=== PATIENT | female | born 1940 | race Caucasian/White ===

== ENCOUNTER → 2019-03-20 | Outpatient (CLI) | payer MEDICARE, OTHER ==
[~2019-03-20] MED LIST: ALLO300; Altoprev40 MG; Benicar40 MG; CARV25; COLCHICINE0.6 MG; ELIQUIS2.5 MG; FURO20; Ipratropium Bro15 ML; JARDIANCE25 MG; K-Dur20 MEQ; LEVSOD125; METF500; POTCHL20ER
== END ==
LOC: LAB EV 12:13 → LAB SHORT 12:13
DX: I87.2 Venous insufficiency (chronic) (peripheral) (principal)
CPT/HCPCS: 87070; 87077; 87186; 87205

== ENCOUNTER 2019-04-02 07:30 | Day surgery (SDC) | payer MEDICARE, OTHER ==
[2019-06-27] MEDS ORDERED: ELIQUIS2.5 MG (11:41)
[2019-06-27] MEDS ORDERED: CARV25 (11:41)
[2019-06-27] MEDS ORDERED: Benicar40 MG (11:41)
[2019-06-27] MEDS ORDERED: METF500 (11:42)
[2019-06-27] MEDS ORDERED: FURO20 (11:42)
[2019-06-27] MEDS ORDERED: POTCHL20ER (11:42)
[2019-06-27] MEDS ORDERED: JARDIANCE25 MG (11:42)
[2019-06-27] MEDS ORDERED: K-Dur20 MEQ (11:42)
[2019-06-27] MEDS ORDERED: COLCHICINE0.6 MG (11:43)
[2019-06-27] MEDS ORDERED: LEVSOD125 (11:43)
[2019-06-27] MEDS ORDERED: ALLO300 (11:43)
[2019-06-27] MEDS ORDERED: Altoprev40 MG (11:44)
[2019-06-27] MEDS ORDERED: Ipratropium Bro15 ML (11:44)
== END 2019-04-02 23:17 | disposition home or self-care (01) ==
LOC: WOUND 07:30
DX: E11.622 Type 2 diabetes mellitus with other skin ulcer (principal); L97.811 Non-pressure chronic ulcer of other part of right lower leg limited to breakdown of skin; E11.42 Type 2 diabetes mellitus with diabetic polyneuropathy; I73.89 Other specified peripheral vascular diseases; I10 Essential (primary) hypertension; I48.91 Unspecified atrial fibrillation; E78.5 Hyperlipidemia, unspecified; G47.30 Sleep apnea, unspecified; Z88.1 Allergy status to other antibiotic agents; Z88.0 Allergy status to penicillin; Z88.2 Allergy status to sulfonamides; Z88.8 Allergy status to other drugs, medicaments and biological substances
CPT/HCPCS: 87070; 87077; 87106; 87186; 87205; G0463

== ENCOUNTER 2019-04-09 10:38 | Day surgery (SDC) | payer MEDICARE, OTHER ==
[2019-06-27] MEDS ORDERED: CARV25 (11:41)
[2019-06-27] MEDS ORDERED: ELIQUIS2.5 MG (11:41)
[2019-06-27] MEDS ORDERED: Benicar40 MG (11:41)
[2019-06-27] MEDS ORDERED: JARDIANCE25 MG (11:42)
[2019-06-27] MEDS ORDERED: K-Dur20 MEQ (11:42)
[2019-06-27] MEDS ORDERED: FURO20 (11:42)
[2019-06-27] MEDS ORDERED: POTCHL20ER (11:42)
[2019-06-27] MEDS ORDERED: METF500 (11:42)
[2019-06-27] MEDS ORDERED: ALLO300 (11:43)
[2019-06-27] MEDS ORDERED: COLCHICINE0.6 MG (11:43)
[2019-06-27] MEDS ORDERED: LEVSOD125 (11:43)
[2019-06-27] MEDS ORDERED: Altoprev40 MG (11:44)
[2019-06-27] MEDS ORDERED: Ipratropium Bro15 ML (11:44)
== END 2019-04-09 22:49 | disposition home or self-care (01) ==
LOC: WOUND 10:38
DX: E11.622 Type 2 diabetes mellitus with other skin ulcer (principal); L97.811 Non-pressure chronic ulcer of other part of right lower leg limited to breakdown of skin; E11.51 Type 2 diabetes mellitus with diabetic peripheral angiopathy without gangrene; E11.42 Type 2 diabetes mellitus with diabetic polyneuropathy; E11.36 Type 2 diabetes mellitus with diabetic cataract; G47.30 Sleep apnea, unspecified; I10 Essential (primary) hypertension; M10.9 Gout, unspecified
CPT/HCPCS: G0463

== ENCOUNTER 2019-04-30 15:15 | Day surgery (SDC) | payer MEDICARE, OTHER ==
[2019-06-27] MEDS ORDERED: ELIQUIS2.5 MG (11:41)
[2019-06-27] MEDS ORDERED: CARV25 (11:41)
[2019-06-27] MEDS ORDERED: Benicar40 MG (11:41)
[2019-06-27] MEDS ORDERED: K-Dur20 MEQ (11:42)
[2019-06-27] MEDS ORDERED: POTCHL20ER (11:42)
[2019-06-27] MEDS ORDERED: FURO20 (11:42)
[2019-06-27] MEDS ORDERED: JARDIANCE25 MG (11:42)
[2019-06-27] MEDS ORDERED: METF500 (11:42)
[2019-06-27] MEDS ORDERED: ALLO300 (11:43)
[2019-06-27] MEDS ORDERED: LEVSOD125 (11:43)
[2019-06-27] MEDS ORDERED: COLCHICINE0.6 MG (11:43)
[2019-06-27] MEDS ORDERED: Ipratropium Bro15 ML (11:44)
[2019-06-27] MEDS ORDERED: Altoprev40 MG (11:44)
== END 2019-04-30 22:45 | disposition home or self-care (01) ==
LOC: WOUND 15:15
DX: E11.622 Type 2 diabetes mellitus with other skin ulcer (principal); L97.811 Non-pressure chronic ulcer of other part of right lower leg limited to breakdown of skin; I73.89 Other specified peripheral vascular diseases; I10 Essential (primary) hypertension; I48.91 Unspecified atrial fibrillation; E78.5 Hyperlipidemia, unspecified
CPT/HCPCS: G0463

== ENCOUNTER 2019-11-22 02:26 | Day surgery (SDC) | payer MEDICARE, OTHER | END 2019-11-22 23:17 | disposition home or self-care (01) | LOC: WOUND 02:26 | DX: L92.1 Necrobiosis lipoidica, not elsewhere classified (principal); E11.42 Type 2 diabetes mellitus with diabetic polyneuropathy; I73.89 Other specified peripheral vascular diseases; I10 Essential (primary) hypertension; E03.9 Hypothyroidism, unspecified; Z88.1 Allergy status to other antibiotic agents; Z88.0 Allergy status to penicillin; Z88.2 Allergy status to sulfonamides; Z88.8 Allergy status to other drugs, medicaments and biological substances; Z79.01 Long term (current) use of anticoagulants; Z79.899 Other long term (current) drug therapy; Z79.84 Long term (current) use of oral hypoglycemic drugs | CPT/HCPCS: G0463 ==

== ENCOUNTER 2019-11-28 00:14 | Day surgery (SDC) | payer MEDICARE, OTHER | END 2019-11-28 22:59 | disposition home or self-care (01) | LOC: WOUND 00:14 | DX: L92.1 Necrobiosis lipoidica, not elsewhere classified (principal); E11.42 Type 2 diabetes mellitus with diabetic polyneuropathy; I73.89 Other specified peripheral vascular diseases; I10 Essential (primary) hypertension; E78.5 Hyperlipidemia, unspecified; E03.9 Hypothyroidism, unspecified; Z79.01 Long term (current) use of anticoagulants; Z79.899 Other long term (current) drug therapy; Z79.84 Long term (current) use of oral hypoglycemic drugs | CPT/HCPCS: G0463 ==

== ENCOUNTER → 2019-12-05 | Day surgery (SDC) | payer MEDICARE, OTHER ==
[~2019-12-05] MED LIST changes: +ALLO300 PO; +BENICAR PO; +CARV25 PO; +CEFP200 PO; +COLCHICINE0.6 MG PO; +ELIQUIS5 MG PO; +FURO20 PO; +Ipratropium Bro30 ML INH; +JARDIANCE25 MG PO; +LEVOTHYROXINE PO; +LOVA40 PO; +METF500 PO; +ONDA4ODT MM; +POTCHL20ER PO; +Zithromax250 MG PO
== END ==
LOC: WOUND 00:28
DX: L92.1 Necrobiosis lipoidica, not elsewhere classified (principal); E11.42 Type 2 diabetes mellitus with diabetic polyneuropathy; I73.89 Other specified peripheral vascular diseases; I10 Essential (primary) hypertension; E78.5 Hyperlipidemia, unspecified; E03.9 Hypothyroidism, unspecified; Z79.01 Long term (current) use of anticoagulants; Z79.899 Other long term (current) drug therapy; Z79.84 Long term (current) use of oral hypoglycemic drugs
CPT/HCPCS: G0463

== ENCOUNTER 2019-12-10 13:34 | Emergency (ER) | payer MEDICARE, OTHER ==
[~2019-12-10] VITALS: Ht 172.7 cm; Wt 122.5 kg
[~2019-12-10 13:34] MED LIST changes: -ALLO300 PO; -BENICAR PO; -CARV25 PO; -CEFP200 PO; -COLCHICINE0.6 MG PO; -ELIQUIS5 MG PO; -FURO20 PO; -Ipratropium Bro30 ML INH; -JARDIANCE25 MG PO; -LEVOTHYROXINE PO; -LOVA40 PO; -METF500 PO; -ONDA4ODT MM; -POTCHL20ER PO; -Zithromax250 MG PO
[2019-12-10 14:07] LABS: BASOPHILS ABSOLUTE AUTO 0.01 K/mm3 (0.00-0.23); BASOPHILS PERCENT AUTO 0 % (0-2); EOSINOPHILS PERCENT AUTO 0 % (0-6); Hematocrit 42.8 % (33.0-51.0); Hemoglobin 14.1 g/dL (11.5-16.0); IMMATURE GRAN ABSOLUTE AUTO 0.02 K/mm3 (0.00-0.10); IMMATURE GRAN PERCENT AUTO 0 % (0-1); LYMPHOCYTES PERCENT AUTO 14 % (21-46); MONOCYTES ABSOLUTE AUTO 0.57 K/mm3 (0.16-1.47); MONOCYTES PERCENT AUTO 8 % (4-13); Mean Corpuscular HGB 30.9 pg (26.0-34.0); Mean Corpuscular HGB Conc 32.9 g/dL (31.5-36.5); Mean Corpuscular Volume 94 fL (80-100); Mean Platelet Volume 10.2 fL (9.1-12.4); NEUTROPHILS ABSOLUTE AUTO 5.51 K/mm3 (1.96-9.15); NEUTROPHILS PERCENT AUTO 78 % (41-73); Platelet Count 167 K/mm3 (150-400); RDW Coefficient Variation 13.9 % (11.7-14.2); RDW Standard Deviation 48.1 fL (35.1-46.3); Red Blood Cell Count 4.57 M/mm3 (3.80-5.20); White Blood Cell Count 7.11 K/mm3 (4.00-11.30)
[2019-12-10 14:30] LABS: Alanine Aminotransfer (ALT/SGP 25 U/L (12-78); Albumin, Blood 2.8 g/dL (3.4-5.0); Albumin/Globulin Ratio 0.7 (0.8-1.8); Alk Phos 62 U/L (50-136); Anion Gap 8 mmol/L (6-16); Aspartate Aminotrans (AST/SGOT 26 U/L (12-37); Bilirubin, Total 0.8 mg/dL (0.1-1.0); Blood Urea Nitrogen 15 mg/dL (8-24); Bun/Creatinine Ratio 17.9 (12.0-20.0); CO2, Blood 25 mmol/L (21-32); Calcium, Blood 8.7 mg/dL (8.5-10.1); Chloride, Blood 101 mmol/L (98-108); Creatinine, Blood 0.84 mg/dL (0.40-1.00); Globulin, Blood 4.2 g/dL (2.2-4.0); Glomerular Filtration Rate >60 (60-); Glucose, Blood 153 mg/dL (70-99); Potassium, Blood 4.2 mmol/L (3.5-5.5); Sodium, Blood 134 mmol/L (136-145)
[2019-12-10] MEDS ORDERED: CARV25 PO (14:31)
[2019-12-10] MEDS ORDERED: ALLO300 PO (14:31)
[2019-12-10] MEDS ORDERED: BENICAR PO (14:31)
[2019-12-10] MEDS ORDERED: FURO20 PO (14:32)
[2019-12-10] MEDS ORDERED: COLCHICINE0.6 MG PO (14:32)
[2019-12-10] MEDS ORDERED: ELIQUIS5 MG PO (14:32)
[2019-12-10] MEDS ORDERED: Ipratropium Bro30 ML INH (14:33)
[2019-12-10] MEDS ORDERED: JARDIANCE25 MG PO (14:33)
[2019-12-10] MEDS ORDERED: LOVA40 PO (14:34)
[2019-12-10] MEDS ORDERED: LEVOTHYROXINE PO (14:34)
[2019-12-10] MEDS ORDERED: METF500 PO (14:34)
[2019-12-10] MEDS ORDERED: POTCHL20ER PO (14:35)
[2019-12-10] MEDS ORDERED: CEFP200 PO (14:50)
[2019-12-10] MEDS ORDERED: Zithromax250 MG PO (14:50)
[2019-12-10 15:26] LABS: Source, Urine Clean Catch
[2019-12-10] MEDS ORDERED: ONDA4ODT MM (15:30)
[2019-12-10 15:32] LABS: Bilirubin, Urine Neg (Neg); Blood, Urine 1+ (Neg); Glucose Qualitative, Urine 4+ (Neg); Ketones, Urine 2+ (Neg); Leukocyte Esterase, Urine Neg (Neg); Nitrite, Urine Neg (Neg); Protein, Urine 2+ (Neg); Specific Gravity, Urine 1.025 (1.003-1.022); Urobilinogen, Urine 1+ (Normal)
[2019-12-10 15:34] LABS: Appearance, Urine Clear (Clear); Color, Urine Amber (P-Yellow)
[2019-12-10 15:42] LABS: Bacteria Mod /hpf; Mucus Light (0-Heavy); Red Blood Cells, Urine 0-2 /hpf (0-2); Squamous Epithelial Cells Few /hpf (Few); White Blood Cells, Urine 0-2 /hpf (0-5)
== END 2019-12-10 15:29 | disposition home or self-care (01) ==
LOC: ER 13:34
PROVIDERS: Physician Assistant
DX: J18.9 Pneumonia, unspecified organism (principal); R11.0 Nausea; Z88.0 Allergy status to penicillin; Z88.8 Allergy status to other drugs, medicaments and biological substances; Z79.899 Other long term (current) drug therapy; Z79.84 Long term (current) use of oral hypoglycemic drugs
CPT/HCPCS: 36415; 71046; 80053; 81001; 83690; 85025; 87086; 99283-25; A9270-GY

== ENCOUNTER → 2020-06-16 | Outpatient (CLI) | payer MEDICARE, OTHER ==
[~2020-06-16] MED LIST changes: +ALLO300 PO; +BENICAR PO; +CARV25 PO; +CEFP200 PO; +COLCHICINE0.6 MG PO; +ELIQUIS5 MG PO; +FURO20 PO; +Ipratropium Bro30 ML INH; +JARDIANCE25 MG PO; +LEVOTHYROXINE PO; +LOVA40 PO; +METF500 PO; +ONDA4ODT MM; +POTCHL20ER PO; +Zithromax250 MG PO
[2020-06-16 12:15] LABS: Source, Urine Clean Catch
[2020-06-16 17:42] LABS: Appearance, Urine Clear (Clear); Bilirubin, Urine Neg (Neg); Blood, Urine Neg (Neg); Color, Urine Yellow (P-Yellow); Glucose Qualitative, Urine 4+ (Neg); Ketones, Urine Neg (Neg); Leukocyte Esterase, Urine Neg (Neg); Nitrite, Urine Neg (Neg); Protein, Urine Neg (Neg); Specific Gravity, Urine 1.015 (1.003-1.022); Urobilinogen, Urine NORM (Normal)
== END | disposition home or self-care (01) ==
LOC: LAB SRC 12:13 → LAB SHORT 12:13 → LAB FUT 06-13 12:05 → EDSTATUS 06-13 12:05
PROVIDERS: Internal Medicine
DX: R30.0 Dysuria (principal)
CPT/HCPCS: 81003